=== PATIENT | male | born 1970 ===

== ENCOUNTER → 2025-05-11 | Outpatient (CLI) | payer OTHER ==
[~2025-05-11] MED LIST: CYCL10 PO; HYDACE10B PO; HYDACE5 PO; NAPR500 PO; RXNAPNA550 PO
[2025-05-11 21:27] LABS: Creatinine, Urine Random 152.0 mg/dL (27.00-270.00); Microalbumin, Random Urine 207.0 mg/L (0.000-20.000)
== END ==
LOC: LAB SHORT 18:47 → LAB 18:47
PROVIDERS: Student in an Organized Health Care Education/Training Program
DX: E11.9 Type 2 diabetes mellitus without complications (principal)
CPT/HCPCS: 82043; 82570